=== PATIENT | female | born 1985 | race Caucasian/White ===

== ENCOUNTER 2018-02-02 14:38 | Emergency (ER) | payer MEDICAID ==
[~2018-02-02] VITALS: Ht 172.7 cm; Wt 79.0 kg
[2018-02-02 14:41] VITALS: BP 123/71
== END 2018-02-02 15:35 | disposition home or self-care (01) ==
LOC: ER 14:39
DX: S90.32XA Contusion of left foot, initial encounter (principal); W22.8XXA Striking against or struck by other objects, initial encounter; Y93.89 Activity, other specified; Y92.89 Other specified places as the place of occurrence of the external cause; Y99.8 Other external cause status
CPT/HCPCS: 73630; 99284